=== PATIENT | male | born 1955 ===

== ENCOUNTER 2024-02-12 13:10 | Emergency (ER) | payer OTHER, SELFPAY ==
--- NOTE | ~2024-02-12 | CT_ITS ---
EXAMINATION: CT brain and CT cervical spine without contrast. CLINICAL INDICATION: Head trauma. COMPARISON: None. TECHNIQUE: 3 mm thin axial and reformatted 2 mm thin sagittal and coronal images of cervical spine were obtained. Subsequently axial 5 mm thin and reformatted 2 mm thin sagittal and coronal images of brain were obtained. DLP 878. - Automated exposure control - Adjustment of mA and/or kV according to patient size (this includes techniques or standardized protocols for targeted exams where dose is matched to indication/reason for exam; i.e. extremities or head) - Use of iterative reconstruction technique. FINDINGS: Brain: There is no acute intra-axial, extra-axial bleed, masses or midline shift. There is no acute infarction evolution. There is no edema. Shea to white matter differentiation is maintained normal. The lateral ventricles are symmetrical in size and configuration without enlargement. Bone windows reveal small lucencies in bilateral parietal lobes. There is no scalp soft tissues swelling. Bilateral paranasal sinuses are normal. There is mild mucoperiosteal thickening left sphenoid sinus. Bilateral optic globe, optic nerve and the periorbital soft tissues are normal.. Cervical spine: There is reversal of cervical lordosis. There is loss of of C5-6 disc height with ventral spondylosis at C5-6 and C6-7 disc levels as noted. The craniovertebral junction and C1-C2 alignment is normal. No visible acute fracture, dislocation or subluxation seen. The prevertebral and paravertebral soft tissues are normal. Airway is widely patent. The right thyroid lobe is enlarged and moderate size heterogenous nodule measuring 1.8 x 1.7 cm. Left thyroid lobe is normal. Mild emphysema in both lung apices. CT/CT cervical spine wo IV con IMPRESSION: No acute intracranial process seen. 2 small lucencies in right and left frontal bone, indeterminate. Consider short-term follow-up with a bone scan as an outpatient. Reversal of cervical lordosis. Loss of C5-6 disc height with mild ventral spondylosis. No visible acute fracture or dislocation seen. Mild emphysema. Electronically signed by: Kobe Dior MD 02/12/2024 03:28 PM EST
[2024-02-12 13:50] VITALS: BP 143/79; BP 171/75; PULSE 84; PULSE 98; RESP 16; TEMP 36.4; O2SAT 97; O2SAT 99; BMI 23.0
--- NOTE | 2024-02-12 13:57 | ECG_ITS ---
Test Reason : WEAKNESS Blood Pressure : / mmHG Vent. Rate : 085 BPM Atrial Rate : 085 BPM P-R Int : 132 ms QRS Dur : 094 ms QT Int : 384 ms P-R-T Axes : 053 018 033 degrees QTc Int : 456 ms Normal sinus rhythm Incomplete right bundle branch block Borderline ECG No previous ECGs available Referred By: Tatiana Rowell Electronically Signed By:ABDIRAHMAN LYNN MD
[2024-02-12] MEDS: LORazepam 0.5 MG TABLET PO (14:05)
[2024-02-12 14:07] LABS: MANUAL DIFF FLAG NO
[2024-02-12 14:09] LABS: Basophils Percent Auto 0.8 % (0-2); Eosinophils Absolute Auto 0.1 X10*3/uL (0.0-0.4); Eosinophils Percent Auto 2.4 % (0-4); Hematocrit 37.9 % (42.0-52.0); Hemoglobin 12.9 g/dl (14.0-18.0); Imm Gran Abs Auto 0.01 X10*3/uL (0.00-0.03); Imm Gran Pct Auto 0.2 % (0.0-0.4); Lymphocytes Percent Auto 20.2 % (20-40); Mean Corpuscular Hemoglobin 32.7 pg (27.0-33.0); Mean Corpuscular Volume 96.2 fL (80.0-98.0); Mean Platelet Volume 12.7 fL (9.4-12.4); Monocytes Absolute Auto 0.4 X10*3/uL (0.1-1.2); Monocytes Percent Auto 8.4 % (2-11); Neutrophils Absolute Auto 3.3 x10*3/uL (2.0-8.3); Platelet Count 127 X10*3/uL (160-400); Red Blood Count 3.94 X10*6/uL (4.60-5.80); White Blood Count 4.9 X10*3/uL (4.8-10.8)
--- NOTE | 2024-02-12 14:24 | ED.FALL ---
HPI - Fall General Chief Complaint: Fall Stated Complaint: FALL FROM [place] [facility], [facility] PER EMS Time Seen by Provider: 02/12/24 13:42 Source: patient, EMS and old records reviewed Mode of arrival: EMS Limitations: no limitations History of Present Illness ED Provider: CLOVIS HPI Narrative: 68 yo male with PMH of severe anxiety and recent hallucinations, GERD, BPH who is under treatment at [facility] noted that he had another panick attack this AM and was trying to use the bathroom he became dizzy and on the way back to his bed he tripped over the walker hitting the back of his head. He feels dyspnea with his panic attacks. He denies any recent infections, GIB symptoms, n/v/d. He states he has had this before. He denies trunk/ext injury. He is asking for anxiety medications on arrival. 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) Fall from: standing Fall witnessed: no Place fall occurred: [facility] Loss of consciousness: none Prolonged down time: no Symptoms prior to fall: dizziness Context: tripped/slipped Location of injury: head Severity: mild Associated symptoms (after fall): other (anxiety) Related Data Allergies Allergy/AdvReac Type Severity Reaction Status Date / Time clindamycin Allergy Unknown Verified 02/12/24 13:54 Review of Systems Review of Systems: Constitutional : No Fever, No Chills, No Fatigue ENT/Mouth : No sore throat, No Rhinorrhea Eyes: No Eye Pain, No Swelling, No Redness Cardiovascular : No Chest Pain, No SOB, No Dyspnea on Exertion Respiratory : No Cough, No Sputum Gastrointestinal : No Nausea, No Vomiting, No Diarrhea, No abdominal Pain Genitourinary : No Dysuria, No Urinary Frequency, No Hematuria, Musculoskeletal : No joint pain, No Myalgias, No Joint Swelling Skin : No Skin Lesions, No rash Neuro : No Weakness, No Numbness, pos Dizziness, no Headache Psych : pos Anxiety/Panic, No Depression All other systems reviewed and are negative [facility] Past Medical History Attestation statement: The following information was validated with the patient. Source: old records reviewed Medical History Anxiety GERD (gastroesophageal reflux disease) BPH (benign prostatic hyperplasia) Social History Social History (Updated 02/12/24 @ 14:30 by Tatiana Rowell DO) Patient Tobacco Use Status: Tobacco use Unknown Smoked in Last 30 Days: No Use of substances other than those prescribed or required for medical reasons: No Advance Directives: No Advance Directives Information Provided: Yes Do you have a plan to hurt others: No Plan Physical Exam Vital Signs: Vital Signs: Last Vital Signs Temp 97.5 F 02/12/24 13:50 Pulse 89 02/12/24 16:25 Resp 16 02/12/24 15:22 BP 147/74 H 02/12/24 16:25 Pulse Ox 99 02/12/24 15:22 O2 Del Method Room Air 02/12/24 15:22 BMI result Body Mass Index 23.0 Appearance: Alert. Oriented X3. No acute distress. Eyes: Pupils equal, round and reactive to light. ENT: Pharynx normal. slight contusion to back of head Neck: Normal inspection. Neck supple. CVS: Normal heart rate and rhythm. Pulses normal. Respiratory: No respiratory distress. Breath sounds normal. Abdomen: Soft and non-tender. Skin: Skin warm and dry. Normal skin color. Normal skin turgor. Extremities: No lower extremity edema. no calf ttp no signs on injury to trunk/ext Neuro: Oriented X 3. No motor deficit. No sensory deficit. CN2-12 intact Medications Administered Discontinued Medications Generic Name Dose Route Start Last Admin Trade Name Davonq PRN Reason Stop Dose Admin Lorazepam 0.5 mg 02/12/24 13:58 02/12/24 14:05 Lorazepam 0.5 Mg Tablet PO 02/12/24 13:59 0.5 mg ONCE ONE Administration Medical Decision Making Medical Decision Making MDM Narrative: 68 yo male with PMH of severe anxiety and recent hallucinations, GERD, BPH states he had panic attack today and now became dizzy and fell hitting back of head no LOC not on thinners he has no CP/SOB other than panic associated dyspnea he will need basic labs, CT head/cspine, EKG, and PO anxiety medications. No trauma to ext noted. He is otherwise not toxic and does not report GI bleed or infectious symptoms. He has had this many times before with anxiety he is alert and oriented x 3 doubt ACS, VTE Differential Diagnosis Differential Diagnoses: The differential diagnosis associated with the presentation includes contusion, dizziness, fall, anemia Admission/Observation Consideration of admission/observation: Escalation of care including admission/observation considered if repeat trop negative will DC home orthostatic VS negative Lab Data [facility] Lab Attestation statement: I reviewed the patient's lab results. 02/12/24 14:03 02/12/24 14:03 Labs: Lab Results 02/12/24 02/12/24 Range/Units 14:03 14:26 WBC 4.9 (4.8-10.8) X10*3/uL RBC 3.94 L (4.60-5.80) X10*6/uL Hgb 12.9 L (14.0-18.0) g/dl Hct 37.9 L (42.0-52.0) % MCV 96.2 (80.0-98.0) fL MCH 32.7 (27.0-33.0) pg MCHC 34.0 (31.0-36.0) g/dl RDW 13.0 (11.0-16.0) % Plt Count 127 L (160-400) X10*3/uL MPV 12.7 H (9.4-12.4) fL Immature Gran % (Auto) 0.2 (0.0-0.4) % Neut % (Auto) 68.0 (45-73) % Lymph % (Auto) 20.2 (20-40) % [place] % (Auto) 8.4 (2-11) % Eos % (Auto) 2.4 (0-4) % Baso % (Auto) 0.8 (0-2) % Lymph # (Auto) 1.0 L (1.2-4.9) X10*3/uL [place] # (Auto) 0.4 (0.1-1.2) X10*3/uL Eos # (Auto) 0.1 (0.0-0.4) X10*3/uL Baso # (Auto) 0.0 (0.0-0.2) X10*3/uL Abs Immat Gran (auto) 0.01 (0.00-0.03) X10*3/uL Absolute Neuts (auto) 3.3 (2.0-8.3) x10*3/uL Absolute Nucleated RBC 0.000 (0.0-0.012) X10*3/uL Nucleated RBC % (auto) 0.0 (0.0-0.2) /100WBC Sodium 146 H (135-145) mmol/L Potassium 4.0 (3.3-5.1) mmol/L Chloride 113 H (96-108) mmol/L Carbon Dioxide 26 (22-29) mmol/L Anion Gap 11 L (12-20) BUN 10 (9-16) mg/dL Creatinine 0.83 (0.5-1.4) mg/dL Estim Creat Clear Calc 88.6 Estimated GFR > 60 Random Glucose 105 (60-115) mg/dL Calcium 9.1 (8.4-10.2) mg/dL Magnesium 2.1 (1.6-2.6) mg/dL Total Bilirubin 0.5 (0.0-1.0) mg/dL Direct Bilirubin 0.1 (0.0-0.5) mg/dL AST 16 (5-37) U/L ALT 8 (0-40) U/L Alkaline Phosphatase 57 (39-117) U/L Troponin I High Sens < 2.7 (<3.5-35.0) ng/L Total Protein 6.5 (6.5-8.0) g/dL Albumin 4.2 (3.5-5.0) g/dL Urine Color Yellow Urine Appearance Clear Urine pH 7.5 (5.0-9.0) Ur Specific [place] <= 1.005 (1.005-1.025) Urine Protein Negative (Neg-Trace) mg/dL Urine Glucose (UA) Negative (Negative) mg/dL Urine Ketones Trace (Negative) mg/dL Urine Blood Negative (Negative) Urine Nitrite Negative (Negative) Ur Leukocyte Esterase Negative (Negative) Independent Interpretation I performed an independent interpretation of an: EKG and CT Scan (no trauma) Interpretation: Rate: 85 Rhythm: NSR Palms: normal Normal P waves. Normal ZAIRA. Normal QRS complex. ST T wave : no IRVING, artifact, nonspecific ST T wave changes V1 qTC: 456 prior studies: no prior The study has been interpreted contemporaneously by me. . Radiology Impression Discussion of test interpretation with radiology: I have reviewed the radiologist's reading. Independent Historian Clinical information obtained from an independent historian. History obtained from or confirmed by: EMS External Record Review External record reviewed: Outpatient record Discharge Plan Discharge Clinical Impression: Dizziness Head injury Qualifiers: Encounter type: initial encounter Qualified Code(s): S09.90XA - Unspecified injury of head, initial encounter Patient Disposition: Home, Self-Care Instructions: Head Injury (ED), Dizziness (ED) Additional Instructions: labs reassuring CT scans negative for injury some bony skull lesions noted - small but needs outpatient bone scan to evaluate stay hydrated return for any worsening symptoms or concerns take your time getting up Print Language: Maori
[2024-02-12 14:32] LABS: Appearance Urine Clear; Color Urine Yellow; Glucose Urine UA Negative (Negative); Leukocyte Esterase Urine Negative (Negative); Nitrite Urine Negative (Negative); PH 7.5 (5.0-9.0); Specific Gravity - Urine <= 1.005 (1.005-1.025); Urine Blood Negative (Negative); Urine Ketones Trace mg/dL (Negative); Urine Protein Negative (Neg-Trace)
[2024-02-12 14:41] LABS: Troponin-I High Sensitivity < 2.7 ng/L (<3.5-35.0)
[2024-02-12 14:43] LABS: Alanine Aminotransferase 8 U/L (0-40); Albumin Level 4.2 g/dL (3.5-5.0); Anion Gap 11 (12-20); Aspartate Amino Transferase 16 U/L (5-37); Bilirubin Direct 0.1 mg/dL (0.0-0.5); Bilirubin Total 0.5 mg/dL (0.0-1.0); Blood Urea Nitrogen 10 mg/dL (9-16); Calcium 9.1 mg/dL (8.4-10.2); Carbon Dioxide 26 mmol/L (22-29); Chloride 113 mmol/L (96-108); Creatinine Clr Calc Pharmacy 88.6; Estimated Glomerular Filt Rate > 60; Glucose Random 105 mg/dL (60-115); Magnesium 2.1 mg/dL (1.6-2.6); Sodium 146 mmol/L (135-145); Total Protein 6.5 g/dL (6.5-8.0)
[2024-02-12 15:18] LABS: Alkaline Phosphatase 57 U/L (39-117)
[2024-02-12 15:22] VITALS: BP 147/74; PULSE 81; RESP 16; O2SAT 99
--- NOTE | 2024-02-12 15:22 | PC.NURSE ---
Assumed care of this patient at 1500, patient resting quietly on stretcher at this time. Sitter at bedside. Waiting CT scan results.
--- OUTSIDE RECORDS SUMMARY | 2024-02-12 15:49 | XMS_ITS | Data Portability ---
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 Reji ferguson is a 67yoM w/ a PmHx of agoraphobia, active smoking who is seen today for further evaluation of a cough. Mr. Brewer denies any acute symptoms and reports that a visiting nurse suggested [facility] for evaluation given his inability to see his PCP. Mr. Brewer and his report that for the past six months he has had a cough intermittently productive of brown sputum. He states that the cough is worst in the morning and improves after he smokes over the day. He denies hemoptysis and otherwise denies fevers/chills, nausea/vomiting, congestion, or any other concerns. VSS. 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 Endorses some frontal sinus tenderness to palpation. POC COVID/flu negative. No acute change makes PNA/acute COPD exacerbation much less likely. His morning cough is more typical of a post-nasal drip and will trial meds targeted towards this, especially in light of his sinus tenderness to the hospice volunteer's exam. Recommended flonase and an albuterol MDI. He reports that he is unable to take flonase because it makes him cough/gag and wlil add singulair as a trial. Primary team, Mr. Brewer would benefit from follow up in the next two weeks to see if a trial of targeted therapy for a post-nasal drip has improved his cough. [email or web address] Not available 06/05/2023 15:23:59 Plan of Treatment Reminders Order Date Submit Date Provider Last Modified By Organization Details Last Modified Time Details Appointments None recorded. Lab None recorded. Referral None recorded. Procedures None recorded. Surgeries None recorded. Imaging None recorded. Medication Orders albuterol sulfate HFA 90 mcg/actuati on aerosol inhaler 2023 024 [id number], [address], [place], [phone], 4 14:30:37 fluticasone propionate 50 mcg/actuati on nasal spray,suspe nsion [address] [id number], [address], [place], [phone], 4 15:20:43 montelukast 10 mg tablet 2023 024 [facility] #[id number], [address], [place], [phone], 4 14:37:17 Patient TargetsNo targets recorded. Patient InstructionsNo instructions recorded. Reason for Referral None Reported. Medical Equipment None Reported. Medications Name Sig Start Date Stop Date Status Note LastModified by Organization Details LastModified Time multivitamin tab men 50+ active Not Available Not Available Not Available multivitamin men 50 tablets TAKE 1 TABLET BY MOUTH DAILY active Not Available Not Available Not Available quetiapine 25 mg tablet TAKE 1 TABLET BY MOUTH THREE TIMES DAILY NEEDED FOR ANXIETY active Not Available Not Available Not Available nabumetone 750 mg tablet TAKE 1 TABLET BY MOUTH TWICE DAILY active Not Available Not Available No t Available divalproex 250 mg tablet,delay ed release TAKE 1 TABLET BY MOUTH DAILY AT BEDTIME active Not Available Not Available N ot Available trazodone 50 mg tablet TAKE 1 TABLET BY MOUTH DAILY AT BEDTIME NEEDED FOR INSOMNIA active Not Available Not Available No t Available azithromycin 250 mg tablet SEE PACKAGE AND TAKE BY MOUTH DAILY active Not Available Not Available Not Available tizanidine 4 mg tablet TAKE 1 TABLET BY MOUTH EVERY 8 HOURS active Not Available Not Available No t Available clonazepam 0.5 mg tablet TAKE 2 TABLETS BY MOUTH TWICE DAILY active Not Available Not Available No t Available clonazepam 1 mg tablet TAKE 1 TABLET BY MOUTH TWICE DAILY active Not Available Not Available No t Available Milk of Magnesia 400 mg/5 mL oral suspension TAKE 30 ML BY MOUTH AT BEDTIME NEEDED FOR CONSTIPATIO N active Not Available Not Available No t Available ciprofloxaci n 500 mg tablet TAKE 1 TABLET BY MOUTH EVERY 12 HOURS FOR 7 DAYS WITH FOOD active Not Available Not Available No t Available morphine ER 30 mg tablet,exten ded release TAKE 1 TABLET BY MOUTH EVERY 12 HOURS active Not Available Not Available No t Available sulfamethoxa zole 800 mg-trimethop rim 160 mg tablet TAKE 1 TABLET BY MOUTH TWICE A DAY active Not Available Not Available No t Available quetiapine 100 mg tablet TAKE 1 TABLET BY MOUTH TWICE DAILY active Not Available Not Available No t Available triamcinolon e acetonide 0.1 % topical cream APPLY THIN LAYER TOPICALLY TO THE AFFECTED AREA THREE TIMES DAILY FOR USE FOR RASH ON ARMS active Not Available Not Available No t Available oxycodone 15 mg tablet TAKE 1 TABLET BY MOUTH EVERY 4 HOURS NEEDED FOR PAIN ON SUBSTANCE AGREEMENT active Not Available Not Available No t Available alprazolam 0.25 mg tablet TAKE 1 TABLET BY MOUTH THREE TIMES DAILY NEEDED FOR ANXIETY FOR ANXIETY RELATED TO LEAVING THE HOUSE. NOT TO EXCEED 3 TABLETS DAILY active Not Available Not Available No t Available tamsulosin 0.4 mg capsule TAKE 1 CAPSULE BY MOUTH DAILY active Not Available Not Available Not Available ibuprofen 400 mg tablet TAKE 1 TABLET BY MOUTH THREE TIMES DAILY active Not Available Not Available Not Available docusate sodium 100 mg capsule TAKE 1 CAPSULE BY MOUTH TWICE DAILY FOR 90 DAYS active Not Available Not Available No t Available montelukast 10 mg tablet TAKE 1 TABLET BY MOUTH EVERY DAY FOR 14 DAYS active Not Available Not Available No t Available hydroxyzine HCl 25 mg tablet TAKE 1 TABLET BY MOUTH 1 TIME DAILY NEEDED FOR ANXIETY active Not Available Not Available Not Available morphine ER 15 mg tablet,exten ded release TAKE 1 TABLET BY MOUTH EVERY 8 HOURS FOR 14 DAYS TAPERING OFF OF MEDICATION - 2 WEEK SUPPLY active Not Available Not Available No t Available mirtazapine 15 mg tablet TAKE 1 AND 1/2 TABLETS BY MOUTH DAILY AT BEDTIME active Not Available Not Available No t Available polyethylene glycol 3350 17 gram/dose oral powder MIX 17 GRAMS INTO WATER OR JUICE AND TAKE BY MOUTH DAILY active Not Available Not Available Not Available levofloxacin 500 mg tablet TAKE 1 TABLET BY MOUTH EVERY DAY active Not Available Not Available No t Available albuterol sulfate HFA 90 mcg/actuatio n aerosol inhaler INHALE 2 PUFFS BY MOUTH EVERY 4 HOURS NEEDED FOR COUGH active Not Available Not Available No t Available ipratropium bromide 42 mcg (0.06 %) nasal spray USE 1 SPRAY IN EACH NOSTRIL FOUR TIMES DAILY active Not Available Not Available No t Available morphine 15 mg immediate release tablet TAKE ONE-HALF TABLET BY MOUTH THREE TIMES DAILY X 14 DAYS THEN ONE-HALF TABLET BY MOUTH TWICE DAILY X 14 DAYS active Not Available Not Available No t Available fluticasone propionate 50 mcg/actuatio n nasal spray,suspen leroy SHAKE LIQUID AND USE 1 SPRAY IN EACH NOSTRIL EVERY DAY active Not Available Not Available No t Available clotrimazole 1 % topical cream APPLY TOPICALLY 2 TIMES A DAY NEEDED FOR ITCH. active Not Available Not Available No t Available nabumetone 500 mg tablet TAKE 1 TABLET BY MOUTH TWICE DAILY WITH FOOD active Not Available Not Available No t Available oxycodone 5 mg tablet TAKE 1/2 TABLET BY MOUTH TWICE DAILY FOR 8 DAYS THEN TAKE 1/2 TABLET BY MOUTH EVERY DAY FOR 8 DAYS NEEDED FOR MODERATE PAIN active Not Available Not Available No t Available hydrocortiso ne 1 % topical cream with perineal applicator APPLY TOPICALLY TO THE AFFECTED AREA THREE TIMES DAILY FOR 1 WEEK active Not Available Not Available N ot Available memantine 10 mg tablet TAKE 1 TABLET BY MOUTH DAILY active Not Available Not Available Not Available memantine 5 mg tablet TAKE 1 TABLET BY MOUTH EVERY MORNING THEN TAKE 2 TABLETS BY MOUTH EVERY NIGHT AT BEDTIME active Not Available Not Available No t Available mirtazapine 7.5 mg tablet TAKE 1 TABLET BY MOUTH DAILY AT BEDTIME active Not Available Not Available N ot Available quetiapine 50 mg tablet TAKE 1 TABLET BY MOUTH DAILY IN THE MORNING active Not Available Not Available No t Available desvenlafaxi ne succinate ER 100 mg tablet,exten ded release 24 hr TAKE 1 TABLET BY MOUTH DAILY active Not Available Not Available Not Available melatonin 5 mg tablet TAKE 1 TABLET BY MOUTH EVERY NIGHT AT BEDTIME active Not Available Not Available No t Available guanfacine ER 2 mg tablet,exten ded release 24 hr TAKE 1 TABLET BY MOUTH DAILY AT BEDTIME active Not Available Not Available N ot Available guanfacine ER 1 mg tablet,exten ded release 24 hr TAKE 1 TABLET BY MOUTH DAILY AT BEDTIME. DO NOT CHEW OR BREAK TABLETS active Not Available Not Available No t Available Linzess 145 mcg capsule TAKE 1 CAPSULE BY MOUTH DAILY active Not Available Not Available Not Available Narcan 4 mg/actuation nasal spray CALL 911. SPR CONTENTS OF ONE SPRAYER (0.1ML) INTO ONE NOSTRIL. REPEAT IN 2-3 MIN IF SYMPTOMS OF OPIOID EMERGENCY PERSIST, ALTERNATE NOSTRILS active Not Available Not Available No t Available Therems-M 9 mg iron-400 mcg tablet TAKE 1 TABLET BY MOUTH DAILY active Not Available Not Available Not Available Vitals Date Recorded Oxygen saturation Oxygen saturation in Arterial blood by Pulse oximetry Respiratory rate Body weight Body temperature Body height Heart rate Systolic blood pressure Diastolic blood pressure Provider Name and Address Organization Details Last Updated DateTime 4 98 % 98 % 16 /min 28402.8 8 g 97.8 [degF] 175.26 cm 78 /min 128 mm[Hg] 84 mm[Hg] Not Available [facility] - production 4 14:25:23 Social History None recorded. Functional Status None recorded. Mental Status None recorded. Family History Nothing Reported. Medical History No medical history recorded. Past Encounters Encounter ID Performer Location Encounter Start Date Encounter Closed Date Diagnosis/Indication Diagnosis SNOMED-CT Code Diagnosis ICD10 Code [id number] Adore Chan MD [facility] [address] [place] [id number] 06/05/2023 14:25:09 06/05/2023 16:24:20 Cough 85374062 R05.9 Health Concerns Section Related Observation LastModified by Organization Detai ls LastModified Time None Recorded Concern Status LastModified by Organization Details LastModified Time None Recorded Advance Directives Directive None Recorded Payers Encounter Date Sequence Insurance Name Policy Number Policy Ch Covered Member ID Ch Member ID Guarantor Name 06/05/2023 1 [facility] - DOS ON OR AFTER 2022 - DUAL ELIGIBLE - HALFWAY OPTIONS AND ONE [employer] (MEDICARE REPLACEMENT/AD VANTAGE - HMO) Lazaro Brewer [id number] Lazaro Brewer Notes Date Note Type Note Provider Name and Address Organization Details Recorded Time 06/05/2023 text/html [facility] Nurse Triage Notes (Mitali Mei): Chief Complaints: Shortness of Breath/Dyspnea, Chest Pain, Cough PMH: Severe Dementia, Other Allergies: Unknown Comments: PMH: Agoraphobia Verified name//address. requesting visit for member for respiratory assessment. c/o shortness of breath in the morning when he wakes up for the last 2 week. New productive cough with yellow sputum. No known fevers. Patient c/o intermittent chest pain with exertion. Member reports intermittent dizziness and weakness over the last 2 days as well. Member felt like he was going to have a syncopal episode yesterday. Refused to go to ED for evaluation. Adore Chan MD [address] [place] [address],[address], [place], [phone], [facility] 06/05/2023 15:24:04
[2024-02-12 16:24] VITALS: BP 137/70; BP 142/78; PULSE 70; PULSE 82
[2024-02-12 16:25] VITALS: BP 147/74; PULSE 89
[2024-02-12 17:16] LABS: Troponin-I High Sensitivity < 2.7 ng/L (<3.5-35.0)
--- NOTE | 2024-02-12 18:18 | PC.NURSE ---
Addendum entered by Leila Wilkes RN 02/12/24 18:20: correction nurse verbalized understanding. Original Note: Called [facility], spoke to nurse Anahi, informed her patient will be returning. All questions answered, patient verbalized understanding.
--- NOTE | 2024-02-12 18:34 | PC.NURSE ---
Spoketo on phone x 2, gave updated both times, patient to be transported back to [facility], waiting for ambulance ride.
[2024-02-12 18:37] VITALS: BP 126/70; PULSE 80; RESP 16; O2SAT 99
== END 2024-02-12 19:30 | disposition home or self-care (01) ==
PROVIDERS: Emergency Medicine; Emergency Provider Emergency Medicine
DX: R42 Dizziness and giddiness (principal); S09.90XA Unspecified injury of head, initial encounter; W01.0XXA Fall on same level from slipping, tripping and stumbling without subsequent striking against object, initial encounter; F41.9 Anxiety disorder, unspecified; Y93.89 Activity, other specified; Y92.129 Unspecified place in nursing home as the place of occurrence of the external cause; Y99.9 Unspecified external cause status
CPT/HCPCS: 36415; 70450; 72125; 80048; 80076; 81003; 83735; 84484; 85025; 93005; 99284; 99285

== ENCOUNTER → 2024-02-12 13:57 | Outpatient (BNV) | payer OTHER, SELFPAY | PROVIDERS: Emergency Provider Emergency Medicine; Visit Provider Radiology Diagnostic Radiology | DX: R42 Dizziness and giddiness (principal) | CPT/HCPCS: 70450; 72125 ==

== ENCOUNTER → 2024-02-12 13:57 | Outpatient (BNV) | payer OTHER, SELFPAY | PROVIDERS: Emergency Provider Emergency Medicine; Visit Provider Internal Medicine Cardiovascular Disease | DX: R53.1 Weakness (principal) | CPT/HCPCS: 93010 ==